=== PATIENT | male | born 1975 | race Caucasian/White ===

== ENCOUNTER 2019-05-05 11:39 | Emergency (ER) | payer MEDICAID ==
[2019-05-05] MEDS ORDERED: ketorolac trometh. 30mg/ml inj. IM ONE (13:45)
[2019-05-05] MEDS ORDERED: ondansetron 4mg rapidly disintigrating tab PO ONE (13:45)
[2019-05-05] MEDS ORDERED: dexamethasone 4mg tablet PO ONE (13:45)
[2019-05-05 14:15] VITALS: BP 179/96
== END 2019-05-05 14:16 | disposition home or self-care (01) ==
LOC: ER 11:40
DX: R51 Headache (principal); M54.2 Cervicalgia; G89.29 Other chronic pain
CPT/HCPCS: 96372; 99283; J1885

== ENCOUNTER → 2024-01-09 | Outpatient (CLI) | payer MEDICAID | END | disposition home or self-care (01) | LOC: RAD 13:08 | PROVIDERS: ATTEND Family Medicine | DX: R22.1 Localized swelling, mass and lump, neck (principal) | CPT/HCPCS: 76536 ==